=== PATIENT | female | born 1975 | race African-American/Black ===

== ENCOUNTER → 2017-06-10 | Outpatient (CLI) | payer BC ==
[~2017-06-10] MED LIST: DAILTAB38 PO; FERRTAB PO; IBUP1TAB7 PO
[2017-06-10 12:46] LABS: AUTOMATED NEUTROPHIL # 3.9 TH/MM3 (1.8-7.7); BASOPHIL % 0.6 % (0.0-2.0); EOSINOPHIL # 0.2 TH/MM3 (0-0.4); EOSINOPHIL % 3.8 % (0.0-4.0); HEMATOCRIT 37.6 % (35.0-46.0); HEMOGLOBIN 12.1 GM/DL (11.6-15.3); LYMPH % 21.3 % (9.0-44.0); LYMPHOCYTE # 1.2 TH/MM3 (1.0-4.8); MEAN CELL VOLUME 80.5 FL (80.0-100.0); MEAN CORPUSCULAR HEMOGLOBIN 25.8 PG (27.0-34.0); MONO % 5.5 % (0.0-8.0); MONOCYTE # 0.3 TH/MM3 (0-0.9); NEUT % 68.8 % (16.0-70.0); PLATELET COUNT 272 TH/MM3 (150-450); RED BLOOD COUNT 4.68 MIL/MM3 (4.00-5.30); RED CELL DISTRIBUTION WIDTH 13.6 % (11.6-17.2); WHITE BLOOD COUNT 5.7 TH/MM3 (4.0-11.0)
[2017-06-10 12:54] LABS: BILIRUBIN, URINE NEG (NEG); BLOOD, URINE NEG (NEG); GLUCOSE,URINE NEG (NEG); KETONE, URINE NEG (NEG); MUCUS URINE MOD /lpf (OCC); NITRITE,URINE NEG (NEG); PH, URINE 6.5 (5.0-8.5); SQUAMOUS EPITHELIAL CELL URINE 1 /hpf (0-5); URINE COLOR YELLOW (YELLW/STRAW); URINE LEUKOCYTE ESTERASE NEG (NEG)
[2017-06-10 13:08] LABS: BICARBONATE 24.9 MEQ/L (21.0-32.0); CHLORIDE 108 MEQ/L (98-107); SODIUM (NA) 140 MEQ/L (136-145)
== END ==
LOC: CPRE 11:44
PROVIDERS: ATTEND Obstetrics & Gynecology
DX: Z01.812 Encounter for preprocedural laboratory examination (principal); D25.9 Leiomyoma of uterus, unspecified
CPT/HCPCS: 36415; 80051; 81001; 84703; 85025

== ENCOUNTER 2017-06-18 06:14 | Inpatient (IN) | payer BC ==
[~2017-06-18] VITALS: Ht 162.6 cm; Wt 80.9 kg
[2017-06-18] MEDS: PCA - TOTAL MG MORPHINE DELIVERED PER SHIFT SCH ×2 (06:00→22:00)
[~2017-06-18 06:14] MED LIST changes: -IBUP1TAB7 PO
[2017-06-18] MEDS ORDERED: METOPROLOL TARTRATE 25 MG TAB PO PRN (06:45)
[2017-06-18] MEDS ORDERED: APREPITANT 40 MG CAP PO ONE (06:45)
[2017-06-18] MEDS ORDERED: SODIUM CHLORID 0.9% 500 ML IV PRN (06:45)
[2017-06-18] MEDS ORDERED: POVIDONE IODINE 5% (ANTISEPSIS KIT) 4 APPLICATIONS EACH NARE PRN (06:45)
[2017-06-18] MEDS ORDERED: CHLORHEXIDINE GLUCONATE 2 % 1 PACK (2 CLOTHS) TOPICAL PRN (06:45)
[2017-06-18] MEDS ORDERED: LACTATED RINGER'S 1000 ML IV PRN (06:45)
[2017-06-18] MEDS ORDERED: CEFAZOLIN INJ 2,000 MG in SODIUM CHLORIDE 0.9% INJ 100 ML IV SCH (06:45)
[2017-06-18] MEDS ORDERED: MIDAZOLAM HCL 2 MG/2 ML VIAL ONE (07:21)
[2017-06-18] MEDS ORDERED: ACETAMINOPHEN 1000 MG/100 ML 100 ML IV ONE (07:21)
[2017-06-18] MEDS ORDERED: LIDOCAINE HCL 2% 20 ML VIAL ONE (07:22)
[2017-06-18] MEDS ORDERED: KETAMINE HCL 500 MG/10 ML VIAL ONE (07:23)
[2017-06-18] MEDS ORDERED: BUPIVACAINE/EPINEPHRINE 0.25% 50 ML VIAL ONE (07:51)
[2017-06-18] MEDS ORDERED: BUPIVACAINE HCL PF 0.25% 30 ML VIAL ONE (07:51)
[2017-06-18] MEDS ORDERED: VASOPRESSIN 20 UNITS/ML VIAL ONE (08:15)
[2017-06-18] MEDS ORDERED: SODIUM CHLORIDE 0.9% FLUSH 10 ML FLUSH IV FLUSH SCH (11:15)
[2017-06-18] MEDS ORDERED: NALOXONE HCL 0.4 MG/ML AMP IV PUSH PRN (11:15)
[2017-06-18] MEDS ORDERED: MORPHINE SULFATE 30 MG/30 ML PCA IV SCH (11:15)
[2017-06-18] MEDS ORDERED: ZOLPIDEM TARTRATE 5 MG TAB PO PRN (11:15)
[2017-06-18] MEDS ORDERED: diphenhydrAMINE HCL 25 MG CAP PO PRN (11:15)
[2017-06-18] MEDS ORDERED: ONDANSETRON HCL 4 MG/2 ML VIAL IVP PRN (11:15)
[2017-06-18] MEDS ORDERED: SODIUM CHLORIDE 0.9% FLUSH 10 ML FLUSH IV FLUSH PRN (11:15)
[2017-06-18] MEDS ORDERED: LORazepam 0.5 MG TAB PO PRN (11:15)
[2017-06-18] MEDS ORDERED: DO NOT ADM ANY ANTICOAGULANT DRUGS PRN (11:40)
--- NOTE | 2017-06-18 11:58 | MP ---
cc: Victor Manuel Salas MD DATE OF OPERATION: 06/18/2017 PREOPERATIVE DIAGNOSIS: Patient with symptomatic multiple large uterine fibroids, anemia, and menorrhagia. PROCEDURE: Exam under anesthesia, diagnostic laparoscopy, laparotomy with multiple myomectomy. POSTOPERATIVE DIAGNOSIS: Exam under anesthesia, diagnostic laparoscopy, laparotomy with multiple myomectomy with multiple large uterine fibroids. ESTIMATED BLOOD LOSS: 450 mL. DRAINS: Adkins to gravity. SURGICAL SPECIMENS: Included endometrial curettings, as well as multiple uterine fibroids. INDICATION FOR THE PROCEDURE: Patient with a known history of uterine fibroids. Multiple fibroids were documented by both ultrasound and MRI, largest measuring approximately 6 x 7 cm. The patient was counseled to her options. The patient had requested maintaining her fertility. Myomectomy was discussed. Both approaches laparoscopic and open were reviewed. The patient was aware of the potential for hemorrhage and even possible hysterectomy given the severity of her condition. The patient's consent was initially for possible robotic assist multiple myomectomy with possible open myomectomy. Consent was signed freely. The patient received Ancef 2 grams prophylactically. OPERATIVE FINDINGS: The patient had multiple large fibroids. The uterus size was approximately a 16-week size uterus with the larger fibroid in the lower uterine segment. On the right aspect of the uterus, there were multiple fundal fibroids and small subserosal fibroids. Fallopian tubes appeared normal bilaterally, as were the ovaries and the appendix and the remaining pelvic anatomy. PROCEDURE DESCRIPTION: The patient was taken to the operating room, underwent general anesthesia without complication. She was carefully positioned in the dorsal lithotomy position using Brian stirrups on the lower extremities and sequential's were placed for VTE prophylaxis. She had a Adkins catheter inserted by sterile technique draining clear urine. She was prepped and draped and a time-out was conducted, agreed by all present in the room. A simple bivalve retractor was used to examine the cervix, which was midline. Cervix was secured with a single-tooth tenaculum and the cervix was then dilated to accommodate a small handheld curette. The curette was used to examine the cavity. Uterine sound was placed and the fundal height measured 16 cm. The instruments were removed. Gloves were changed. The abdomen was draped and 0.25% plain Marcaine was used to inject the umbilical port. A 5 mm Visiport trocar was inserted directly into the peritoneal cavity and low pressure was insufflated at approximately 2 liters of CO2. The patient was then placed in steep Trendelenburg positioning to examine the pelvic anatomy, which was described above. At this point, decision was to proceed with an open approach due to the location and limitations of laparoscopic approach. The trocar was removed. The patient's abdomen previously was prepped. A Pfannenstiel incision was then utilized just above the pubic symphysis. This was carried through the skin down through the subcutaneous layer cauterizing any active bleeding along the way. The fascia was then identified, cleaned, and then scored laterally dissecting away from the rectus muscle. The muscle in the midline. Peritoneum was identified and opened sharply. The incision was extended to allow delivery of the uterus through the incision. The uterus was elevated and protected with wet lap pads. Pitressin in a solution of 20 units in 100 mL was given. Approximately 30 mL was injected in total without complication. A linear incision was made over the anterior surface of the uterus allowing dissection of the fibroids. The dissection was accomplished with simple retraction and a combination of sharp dissection with scissors and use of monopolar cutting. Multiple fibroids were incurred. Dissection allowed removal of the dominant, large fibroids. There were some small subserosal fibroids that were not significant. The endometrial cavity was entered anteriorly due to the proximity of the largest fibroid with the cavity. The cavity was then sutured with a running suture of 4-0 Monocryl with good approximation. The myometrial defects were then closed in a serial fashion using 2-0 Vicryl suture and then the serosal surface was closed with a running suture of 2-0 Monocryl. Posteriorly, there was another intramural myoma approximately 3 cm that was removed by simple resection and then closing the defect with a running suture of 2-0 Monocryl with good result. Examination of the uterus after the closure was intact. There was no development of hematoma. There was no active bleeding. The pelvis was irrigated and then all free fluid was aspirated. Interceed was then introduced and used to protect the uterine incisions both anteriorly and posteriorly. Once this was complete, the full and final count was made and correct. The peritoneum was then reapproximated and closed with a running suture of 2-0 Monocryl. Muscle bellies were reapproximated loosely and then the fascia was closed with 0 Vicryl in a simple running fashion with good result. Subcutaneous layer was irrigated and any active bleeding was cauterized. The space was reapproximated with a running suture of 2-0 Monocryl. 0.25% plain Marcaine was injected approximately 20 mL subcutaneously prior to closure of the skin. Skin closure was made with a subcuticular stitch of 4-0 Monocryl, Steri-Strips and Band-Aids. The incision was covered with a reinforced dressing. At the completion of the case, final count was correct. The patient was stable. She was taken to the recovery room, extubated on room air. Victor Manuel Salas MD [facility] , 11:24 AM , 11:57 AM
[2017-06-18] MEDS ORDERED: LIDOCAINE HCL 1% PF 5 ML SYRINGE OTHER ONE (12:00)
[2017-06-18] MEDS ORDERED: ONDANSETRON HCL 4 MG/2 ML VIAL IV ONE (12:00)
[2017-06-18] MEDS ORDERED: NEOSTIGMINE 5 MG/5 ML SYRINGE IV PUSH ONE (12:00)
[2017-06-18] MEDS ORDERED: GLYCOPYRROLATE 1 MG/5 ML SYRINGE IV PUSH ONE (12:00)
[2017-06-18] MEDS ORDERED: DEXAMETHASONE SOD PHOS 4 MG/ML VIAL IV ONE (12:00)
[2017-06-18] MEDS ORDERED: ROCURONIUM INJ 50 MG/5 ML SYRINGE IV PUSH ONE (12:00)
[2017-06-18] MEDS ORDERED: PROPOFOL 200 MG/20 ML AMP IV ONE (12:00)
[2017-06-18] MEDS ORDERED: NORMOSOL R INJ 2,000 ML IV ONE (12:00)
[2017-06-18] MEDS ORDERED: SODIUM CHLOR 0.9% 250 ML INJ 250 ML IV ONE (12:00)
[2017-06-18 12:02] LABS: HEMATOCRIT 25.2 % (35.0-46.0); HEMOGLOBIN 8.3 GM/DL (11.6-15.3); MEAN CELL VOLUME 78.7 FL (80.0-100.0); MEAN CORPUSCULAR HEMOGLOBIN 26.1 PG (27.0-34.0); MEAN CORPUSCULAR HGB CONC 33.1 % (32.0-36.0); MEAN PLATELET VOLUME 7.8 FL (7.0-11.0); PLATELET COUNT 176 TH/MM3 (150-450); RED CELL DISTRIBUTION WIDTH 13.7 % (11.6-17.2); WHITE BLOOD COUNT 10.7 TH/MM3 (4.0-11.0)
[2017-06-18] MEDS: LACTATED RINGER'S 1000 ML INJ 1,000 ML IV SCH ×2 (12:20→18:06)
[2017-06-18] MEDS: KETOROLAC TROMETHAMINE 30 MG/ML (IVP) VIAL IVP PRN ×2 (13:15→21:04)
[2017-06-18] MEDS ORDERED: PILL SPLITTER OTHER PRN (13:15)
[2017-06-18 13:30] VITALS: BP 119/64; PULSE 68; RESP 20; TEMP 97.4; O2SAT 100
[2017-06-18 16:30] VITALS: BP 101/52; PULSE 60; RESP 16; TEMP 97.6; O2SAT 96
[2017-06-18] MEDS ORDERED: IRON SUCROSE INJ 200 MG in SODIUM CHLORIDE 0.9% INJ 100 ML IV ONE (18:00)
[2017-06-18 21:00] VITALS: BP 99/54; PULSE 55; RESP 17; TEMP 97.9
[2017-06-18] MEDS: DOCUSATE SODIUM 100 MG CAP PO SCH (21:00)
[2017-06-19] VITALS (16 sets, daily range): BP systolic 94–132; BP diastolic 44–74; PULSE 53–100; RESP 16–20; TEMP 98–100.2; O2SAT 99–100
[2017-06-19] MEDS: KETOROLAC TROMETHAMINE 30 MG/ML (IVP) VIAL IVP PRN (04:11)
[2017-06-19 05:51] LABS: BASOPHIL % 0.1 % (0.0-2.0); EOSINOPHIL % 0.4 % (0.0-4.0); HEMATOCRIT 24.2 % (35.0-46.0); HEMOGLOBIN 7.8 GM/DL (11.6-15.3); LYMPHOCYTE # 1.3 TH/MM3 (1.0-4.8); MEAN CELL VOLUME 79.6 FL (80.0-100.0); MEAN CORPUSCULAR HEMOGLOBIN 25.6 PG (27.0-34.0); MEAN CORPUSCULAR HGB CONC 32.2 % (32.0-36.0); MEAN PLATELET VOLUME 8.2 FL (7.0-11.0); MONO % 8.4 % (0.0-8.0); MONOCYTE # 0.7 TH/MM3 (0-0.9); NEUT % 75.1 % (16.0-70.0); PLATELET COUNT 173 TH/MM3 (150-450); RED BLOOD COUNT 3.04 MIL/MM3 (4.00-5.30); RED CELL DISTRIBUTION WIDTH 13.9 % (11.6-17.2)
[2017-06-19] MEDS ORDERED: AMMONIA AROMATIC INHALANT 0.33 ML ONE (08:12)
--- NOTE | 2017-06-19 10:02 | HHI.PR ---
Subjective Remarks Feeling weak. Fainted in bathroom appetite minimal wanted discharge but fearful of ability to do self care has received venofir hgb 7.8 from 12.1 pre op Objective Vital Signs Vital Signs Date Time Temp Pulse Resp B/P (MAP) Pulse Ox O2 Delivery O2 Flow Rate FiO2 06/19/17 08:25 53 99/46 (63) 06/19/17 04:15 59 16 95/53 (67) 06/19/17 03:57 98.0 64 17 99/44 (62) 06/19/17 00:17 98.2 74 18 118/60 (79) 06/18/17 22:00 18 06/18/17 21:00 97.9 55 17 99/54 (69) 06/18/17 16:30 97.6 60 16 101/52 (68) 96 06/18/17 13:44 14 06/18/17 13:30 97.4 68 20 119/64 (82) 100 06/18/17 13:22 68 16 113/61 (78) 100 Nasal Cannula 2 06/18/17 13:00 67 16 118/61 (80) 100 Nasal Cannula 2 06/18/17 12:45 69 16 117/60 (79) 100 Nasal Cannula 2 06/18/17 12:30 69 16 116/61 (79) 100 Nasal Cannula 2 06/18/17 12:15 67 16 116/58 (77) 100 Nasal Cannula 2 06/18/17 12:00 70 16 112/58 (76) 100 Nasal Cannula 2 06/18/17 11:39 97.7 70 16 112/58 (76) 100 Nasal Cannula 2 I/O 06/18/17 06/18/17 06/18/17 06/19/17 06/19/17 06/19/17 06:59 14:59 22:59 06:59 14:59 22:59 Intake Total 2000 ml 400 ml 775 ml Output Total 1150 ml 250 ml 1170 ml Balance 850 ml 150 ml -395 ml Intake Oral 100 ml IV Total 2000 ml 400 ml 675 ml Output Urine Total 750 ml 250 ml 1170 ml Estimated Blood Loss 400 ml Result Diagram: 06/19/17 0517 Objective Remarks mucosa pale capillary refill in fingers delayed Chest is clear, regular rate and rhythm. Abdomen is soft and non-distended. Incisions clean and dry. Ext no CCE. Neg Homann's A/P Assessment and Plan post op anemia as expected with myomectomy fainting episode will give second venofir repeat H & H in am continue IV fluids remove right hand saline lock DC [employer] low dose opioids po Victoria Jackson MD Jun 19, 2017 10:02
--- NOTE | 2017-06-19 10:09 | HHI.DCPOC ---
Discharge Care Plan Your Health Problems Are: Abdominal pain Fever, temperature>100.4 Incisions/drains Inflammation/infection Pelvic pain Vaginal bleeding Report Symptoms to Your Doctor -Temperature above 100.5 degrees -Redness, of incision or excessive or foul smelling drainage -Unusual pain or calf pain -Increased vaginal bleeding -Painful or difficulty urinating -Feelings of extreme sadness or anxiety after 2 weeks Goals to Promote Your Health * To prevent worsening of your condition and complications * To maintain your health at the optimal level Directions to Meet Your Goals Take your medications as prescribed Follow your dietary instruction Follow activity as directed Ensure plenty of rest for recovery Drink fluids for hydration Keep your appointments as scheduled Take your immunizations and boosters as scheduled If your symptoms worsen call your PCP, if no PCP go to Urgent Care Center or Emergency Room Smoking is Dangerous to Your Health. Avoid second hand smoke Call the 24-hour crisis hotline for domestic abuse at Victor Manuel Salas MD Jun 19, 2017 10:09
[2017-06-19] MEDS ORDERED: SIMETHICONE 80 MG CHEWABLE TAB CHEW PRN (10:15)
--- NOTE | 2017-06-19 10:16 | HHI.PR ---
Subjective Remarks POD#1 from multiple myomectomy, EBL =450cc, Syncopal episode this am, case reviewed with Dr Jackson. Patient is stable, c/o gas pains. Minimal vaginal bleeding Objective Vital Signs Vital Signs Date Time Temp Pulse Resp B/P (MAP) Pulse Ox O2 Delivery O2 Flow Rate FiO2 06/19/17 08:25 53 99/46 (63) 06/19/17 07:45 98.0 65 18 108/53 (71) 99 06/19/17 04:15 59 16 95/53 (67) 06/19/17 03:57 98.0 64 17 99/44 (62) 06/19/17 00:17 98.2 74 18 118/60 (79) 06/18/17 22:00 18 06/18/17 21:00 97.9 55 17 99/54 (69) 06/18/17 16:30 97.6 60 16 101/52 (68) 96 06/18/17 13:44 14 06/18/17 13:30 97.4 68 20 119/64 (82) 100 06/18/17 13:22 68 16 113/61 (78) 100 Nasal Cannula 2 06/18/17 13:00 67 16 118/61 (80) 100 Nasal Cannula 2 06/18/17 12:45 69 16 117/60 (79) 100 Nasal Cannula 2 06/18/17 12:30 69 16 116/61 (79) 100 Nasal Cannula 2 06/18/17 12:15 67 16 116/58 (77) 100 Nasal Cannula 2 06/18/17 12:00 70 16 112/58 (76) 100 Nasal Cannula 2 06/18/17 11:39 97.7 70 16 112/58 (76) 100 Nasal Cannula 2 I/O 06/18/17 06/18/17 06/18/17 06/19/17 06/19/17 06/19/17 07:00 15:00 23:00 07:00 15:00 23:00 Intake Total 2000 ml 600 ml 575 ml Output Total 1150 ml 450 ml 970 ml Balance 850 ml 150 ml -395 ml Intake Oral 100 ml IV Total 2000 ml 500 ml 575 ml Output Urine Total 750 ml 450 ml 970 ml Estimated Blood Loss 400 ml Result Diagram: 06/19/17 0517 A/P Assessment and Plan POD#1; Anemia due to surgical blood loss,is stable now, suspect vagal reaction. Order cbc now.Is receiving IV iron. Victor Manuel Salas MD Jun 19, 2017 10:16
[2017-06-19] MEDS ORDERED: IRON SUCROSE INJ 200 MG in SODIUM CHLORIDE 0.9% INJ 100 ML IV ONE (11:00)
[2017-06-19] MEDS: DOCUSATE SODIUM 100 MG CAP PO SCH ×2 (11:21→20:35)
[2017-06-19] MEDS: LACTATED RINGER'S 1000 ML INJ 1,000 ML IV SCH (11:34)
[2017-06-19 12:41] LABS: HEMATOCRIT 23.8 % (35.0-46.0); HEMOGLOBIN 7.8 GM/DL (11.6-15.3); MEAN CELL VOLUME 79.2 FL (80.0-100.0); MEAN CORPUSCULAR HEMOGLOBIN 26.1 PG (27.0-34.0); MEAN CORPUSCULAR HGB CONC 32.9 % (32.0-36.0); MEAN PLATELET VOLUME 7.6 FL (7.0-11.0); PLATELET COUNT 168 TH/MM3 (150-450); RED CELL DISTRIBUTION WIDTH 13.8 % (11.6-17.2); WHITE BLOOD COUNT 8.1 TH/MM3 (4.0-11.0)
[2017-06-19 13:11] LABS: BICARBONATE 26.7 MEQ/L (21.0-32.0); CALCIUM 7.6 MG/DL (8.5-10.1); CREATININE 0.6 MG/DL (0.50-1.00)
[2017-06-19] MEDS: 1/2 NS + KCL 20 MEQ INJ 1,000 ML IV SCH (16:28)
[2017-06-19] MEDS: IBUPROFEN 600 MG TAB PO PRN (17:14)
[2017-06-19] MEDS: ACETAMINOPHEN/HYDROcodone 325 MG/5 MG TAB PO PRN (20:35)
[2017-06-20] MEDS: ACETAMINOPHEN/HYDROcodone 325 MG/5 MG TAB PO PRN ×2 (02:23→08:00)
[2017-06-20 04:03] VITALS: BP 123/70; PULSE 81; RESP 18; TEMP 98.3
[2017-06-20 06:00] LABS: AUTOMATED NEUTROPHIL # 6.3 TH/MM3 (1.8-7.7); BASOPHIL % 0.2 % (0.0-2.0); EOSINOPHIL # 0.1 TH/MM3 (0-0.4); EOSINOPHIL % 1.6 % (0.0-4.0); HEMATOCRIT 27.3 % (35.0-46.0); HEMOGLOBIN 9.4 GM/DL (11.6-15.3); LYMPH % 16.8 % (9.0-44.0); LYMPHOCYTE # 1.4 TH/MM3 (1.0-4.8); MEAN CELL VOLUME 80.6 FL (80.0-100.0); MEAN CORPUSCULAR HEMOGLOBIN 27.7 PG (27.0-34.0); MEAN CORPUSCULAR HGB CONC 34.4 % (32.0-36.0); MEAN PLATELET VOLUME 8.3 FL (7.0-11.0); MONO % 5.9 % (0.0-8.0); MONOCYTE # 0.5 TH/MM3 (0-0.9); NEUT % 75.5 % (16.0-70.0); PLATELET COUNT 163 TH/MM3 (150-450); RED BLOOD COUNT 3.39 MIL/MM3 (4.00-5.30); RED CELL DISTRIBUTION WIDTH 14.5 % (11.6-17.2); WHITE BLOOD COUNT 8.3 TH/MM3 (4.0-11.0)
[2017-06-20 06:30] LABS: BICARBONATE 26.7 MEQ/L (21.0-32.0); CALCIUM 7.3 MG/DL (8.5-10.1); CREATININE 0.38 MG/DL (0.50-1.00)
[2017-06-20] MEDS: 1/2 NS + KCL 20 MEQ INJ 1,000 ML IV SCH (06:30)
[2017-06-20 07:09] LABS: CALCIUM-PROTEIN CORRECTED 8.3 MG/DL (8.5-10.1); TOTAL PROTEIN 5.3 GM/DL (6.4-8.2)
[2017-06-20 07:56] VITALS: BP 148/72; PULSE 76; RESP 16; TEMP 98.3; O2SAT 98
[2017-06-20] MEDS: DOCUSATE SODIUM 100 MG CAP PO SCH (08:00)
[2017-06-20] MEDS: IBUPROFEN 600 MG TAB PO PRN (08:00)
--- NOTE | 2017-06-20 09:03 | HHI.PR ---
Subjective Remarks Doing better, s/p transfusion x 2 units, Hct = 9.4, pain is well controlled, eating well. Objective Vital Signs Vital Signs Date Time Temp Pulse Resp B/P (MAP) Pulse Ox O2 Delivery O2 Flow Rate FiO2 06/20/17 07:56 98.3 76 16 148/72 (97) 98 06/20/17 04:03 98.3 81 18 123/70 (87) 06/19/17 23:54 98.7 89 18 124/58 (80) 06/19/17 20:50 98.6 81 19 132/74 (93) 06/19/17 20:20 98.1 100 18 126/62 06/19/17 20:18 98.1 100 18 126/62 06/19/17 19:46 98.1 100 18 126/62 (83) 06/19/17 18:40 99.1 06/19/17 17:25 99.0 82 18 121/74 (90) 100 06/19/17 17:25 99.0 82 20 121/74 100 06/19/17 17:10 100.2 77 20 122/65 100 06/19/17 16:57 99.5 80 18 109/60 100 06/19/17 14:50 98.8 89 18 99/57 (71) 116/68 (84) 94/61 (72) 06/19/17 09:47 98.3 68 18 116/61 (79) I/O 06/19/17 06/19/17 06/19/17 06/20/17 06/20/17 06/20/17 07:00 15:00 23:00 07:00 15:00 23:00 Intake Total 575 ml 905 ml 903 ml Output Total 970 ml 725 ml 200 ml 500 ml Balance -395 ml 180 ml 703 ml -500 ml IV Total 575 ml 903 ml Packed Cells 800 ml Blood Product IV Normal Saline Flush 105 ml Output Urine Total 970 ml 725 ml 200 ml 500 ml Result Diagram: 06/20/17 0455 06/20/17 0455 A/P Assessment and Plan POD#2; Patient has some improvement but remains weak, slow to ambulate, rodriguez was removed and is waiting to void will plan discharge for tomorrow if h+h stable and is not orthostatic.. Victor Manuel Salas MD Jun 20, 2017 09:03
== END 2017-06-20 11:12 | disposition home or self-care (01) | DRG 743 ==
LOC: HSDC 06:14 → HSDI 11:15 → H1EA 13:35 → OBSVTOIN 15:03
PROVIDERS: ADMIT Obstetrics & Gynecology; ATTEND Obstetrics & Gynecology
PROC: 0UB90ZZ Excision of Uterus, Open Approach (ICD-10-PCS; principal; 2017-06-18 08:05)
PROC: 30233N1 Transfusion of Nonautologous Red Blood Cells into Peripheral Vein, Percutaneous Approach (ICD-10-PCS; 2017-06-19)
DX: D25.2 Subserosal leiomyoma of uterus (principal); D25.9 Leiomyoma of uterus, unspecified; R55 Syncope and collapse; D64.9 Anemia, unspecified; N92.0 Excessive and frequent menstruation with regular cycle
CPT/HCPCS: 36430; 80048; 84155; 85025; 85027; 86850; 86900; 86901; 86920; 88305; 94150; C1765; J0131; J0690; J1100; J1756; J1885; J2250; J2270; J2405; J2710; J3010; J7050; J7120; J8501; P9016